=== PATIENT | female | born 1990 | race Caucasian/White ===

== ENCOUNTER 2018-12-29 05:00 | Inpatient (IN) | payer OTHER, SELFPAY ==
--- NOTE | 2018-12-24 11:36 | PCM.HP.BLA ---
Problem List (1) LGA (large for gestational age) fetus Status: Acute (2) Polyhydramnios affecting in third trimester Status: Acute History and Physical Date of Admission: 12/29/18 Rosa Birmingham Physician [employer] SPECIALIST H&P Signed Encounter Date: 12/24/2018 Expand All Collapse All Hide copied text Rosa M for details Adamaris Castro is a 28 year old female who presents for preoperative exam for primary section due to large for gestational age fetus and polyhydramnios. Patient denies any chest pain, shortness of breath, dizziness. ? PAST?MEDICAL?HISTORY PAST MEDICAL HISTORY Diagnosis Date ? Menorrhagia ? ? Overweight (BMI 25.0-29.9) 06/29/2014 ? 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 all follow ups normal ? Renal cyst 08/24/2011 ? PAST?SURGICAL?HISTORY PAST SURGICAL HISTORY Procedure Laterality Date ? EXTRACTION ERUPTED TOOTH ? ? ? [place] teeth ? FAMILY?HISTORY FAMILY HISTORY Problem Relation Age of Onset ? Cancer Mother ? ? lymphoma ? Hypertension Father ? ? Diabetes Maternal Grandfather ? ? Cancer Paternal Grandmother ? ? lymphoma ? Diabetes Paternal Grandfather ? ? SOCIAL?HISTORY Social History Socioeconomic History Marital status: Single Spouse name: Not on file Number of children: 0 Years of education: 15 Highest education level: Not on file Social Needs Financial resource strain: Not on file Food insecurity - worry: Not on file Food insecurity - inability: Not on file Transportation needs - medical: Not on file Transportation needs - non-medical: Not on file Occupational History Occupation: [employer] Employer: [employer] Tobacco Use Smoking status: Never Smoker Smokeless tobacco: Never Used Substance and Sexual Activity Alcohol use: Yes Comment: Ocassionally Drug use: No Sexual activity: Yes Partners: Male Other Topics Concerns: Not on file Social History Narrative Not on file ? CURRENT?MEDICATIONS ? Current Outpatient Medications: famotidine (PEPCID ORAL) Take by mouth. docosahexanoic acid (DHA ORAL) Take by mouth. cholecalciferol, vitamin D3, (VITAMIN D3 ORAL) Take by mouth. Vprivyjv-Mx-Mgr-Fe-FA ( VITAMIN) tab Take 1 tablet by mouth once daily. multivitamin tablet Take 1 tablet by mouth once daily. ? No current facility-administered medications for this visit. Allergies As of Date: 12/24/2018 (No Known Allergies) Fully Assessed 12/24/2018 ? ? REVIEW OF SYSTEMS Abdomen: no pain ? Expanded ROS: GENERAL: Negative for fever Allergies and current medication updated:Yes ? EXAM: BP 118/72 Wt 217 lb (98.4kg) LMP 03/29/2018 ? GENERAL: pleasant, female in no apparent distress HEENT: Normocephalic, atraumatic, mucus membranes moist and no lesions NECK: full range of motion DERMATOLOGY: Normal, without lesions, non-icteric and non-hirsute CARDIAC: Regular rate and rhythm CHEST: Normal inspiratory effort ABDOMEN: gravid, non tender FHR 135 NEURO: alert and oriented x3,exam grossly non-focal EXTREMITIES: normal ? ASSESSMENT AND PLAN: Encounter Diagnosis ? ? ICD-10-CM ? 1. Polycystic ovaries E28.2 URINE OB DIP B/O 2. Visit for screening Z36.9 URINE OB DIP B/O 3. 38 weeks gestation of Z3A.38 URINE OB DIP B/O ? 4. C/S scheduled at 39.2 wks 5. Pt has been counseled on risks/benefits and alternatives of surgery including but not limited to anesthesia, bleeding, infection, injury to pelvic structures including bowel, bladder, ureters and vessels. Pt wishes to proceed with surgery at this time. ? ? Rosa Aj MD ? ? ?
[2018-12-29] VITALS (20 sets, daily range): BP systolic 118–149; BP diastolic 68–100; PULSE 60–90; RESP 12–20; TEMP 35.7–36.7; O2SAT 96–100; BMI 35.0; BMI 35.1
[2018-12-29] MEDS: Lactated Ringers 1,000 ML 999 ML IV (05:30)
[2018-12-29 06:01] LABS: Absolute Lymphocyte Count 3.29 X10^3/uL (0.83-4.51); Absolute Neutrophil Count 5.7 X10^3/uL (2.0-7.7); Basophil# 0.06 X10^3/uL; Basophil% 0.6 % (0-1); Eosinophil# 0.11 X10^3/uL; Hematocrit 35.1 % (37-47); Hemoglobin 12.2 g/dL (12.0-15.0); Lymphocyte # 3.29 X10^3/ul (4.0); Lymphocyte % 31.1 % (19-41); Mean Corp Hgb Conc 34.8 g/dL (32-36); Mean Corpuscular Hgb 29.8 pg (27.0-32.0); Mean Corpuscular Volume 85.6 fL (81-99); Mean Platelet Vol. 11.5 fl (6.2-12.0); Monocyte# 1.08 X10^3/uL; Monocyte% 10.2 % (0-10); NRBC Flagged by Analyzer 0 % (0-5); Neutrophil # 5.72 X10^3/uL (2.7-7.7); Platelet Count 198 K/mm3 (150-450); RBC Distribution Width CV 12.4 % (11.6-14.6); RBC Distribution Width SD 38.3 fl (35.1-43.9); White Blood Count 10.6 K/mm3 (4.4-11.0)
[2018-12-29] MEDS: Lactated Ringers 1,000 ML 150 ML IV (06:19)
[2018-12-29] MEDS: Sodium Citrate/Citric Acid 30 ML UDC PO (07:08)
--- NOTE | 2018-12-29 07:23 | PCM.OPRPT ---
Problem List (1) LGA (large for gestational age) fetus Status: Acute (2) Polyhydramnios affecting in third trimester Status: Acute Report of Operation Surgery/Procedure Performed:: Primary LTCS wheel and caster repairer: Jennifer Yanes Type of Anesthesia:: Spinal Specimen's removed: placenta Grafts/Implants Used: none Delivery Classification: Scheduled Final TENA: 01/03/19 Final TENA Source: US <20 weeks Gestational age: 39 Weeks and 2 Days Indications: Elective primary cs for suspected LGA based on ultrasound findings, Polyhydramnios Description of Procedure: After informed consent was obtained the patient was taken the operating room she was given spinal anesthesia. She was then placed in the supine position. She was prepped and draped in the normal sterile fashion. Anesthesia was found to be adequate. At this time a Pfannenstiel skin incision was made with a knife was carried down to the underlying layer of the fascia. The fascial incision was then extended laterally using curved Will scissor. Tensions was then turned to the superior aspect of the fascial edge was grasped with 2 straight [place] clamps tented up and the rectus muscle dissected off sharply using curved Will scissor. Attention was then turned to the inferior aspect where again Alan clamps were placed in the rectus muscles were tented up and the fascia was dissected off sharply using the curved Will scissor. Rectus muscles were then in the midline bluntly and peritoneum was entered bluntly. Gentle opposing traction was placed. At this time the vesicouterine peritoneum was identified. Scalpel was used to make a uterine incision in a low transverse fashion. The uterus was then entered bluntly gentle opposing traction was placed to extend this incision. Membranes were ruptured clear. Infant's head was brought to the uterine incision was delivered atraumatically. Delayed cord clamping performed. Immediate skin the skin was performed. The Placenta was removed from the uterus. The uterus was then removed from the abdominal cavity. The uterus was cleared of all clots and debris using a lap. At this time the uterine incision was reapproximated using #1 Vicryl in a running locked fashion. Followed by a second imbricating layer with [id number] sutures. Hemostasis was appreciated. Kenneth placed. Posterior cul-de-sac was then cleared of all clots and debris. Uterus was placed back in the abdominal cavity. Gutters were cleared of all clots and debris. Uterine incision was reevaluated and noted to be of excellent hemostasis. At this time the peritoneum was grasped with Kellys reapproximated using #2 Vicryl suture in a running fashion. Muscles then reapproximated using #2 Vicryl in a interrupted mattress suture fashion. Fascia was then reapproximated using #1 Vicryl in a running fashion. Subcu layer was reapproximated with #2 0 plain gut suture in an interrupted fashion. Subcu layer was closed using 4-0 vicryl on a Jhoan needle in a subcu fashion. Dry sterile dressing was applied. Instrument lap needle count correct ?2. Anticipated normal postoperative course. Amniotic Membrane Rupture Type: Artificial Amniotic Fluid Description: Clear Placenta Disposition: [facility] Drain: [place] to straight drain Cord Entanglement: None Cord Vessel Description: 3 Vessels (1 minute): 8 (5 minute): 9 Delayed cord clamping: Yes Pre-op Antibiotic Given: Ancef 2 grams IV x1 Pt instructed on risks of surgery: Bleeding, Anesthesia Risks, Infection, Injury to surrounding structure(s) including bowel and bladder - Admit VTE Documentation VTE Present on Admission: Yes VTE Mechan Device Prophylaxis: SCD's VTE Pharm Prophylaxis ordered?: Yes
[2018-12-29] MEDS: Lactated Ringers 1,000 ML 100 ML IV ×2 (08:30→17:05)
[2018-12-29] MEDS: Loratadine 10 MG Tablet PO (10:22)
[2018-12-29] MEDS: Ondansetron 4 MG/2 ML Vial IV ×2 (11:24→16:50)
[2018-12-29] MEDS: Ketorolac 30 MG/ML Syringe IV ×2 (14:06→20:10)
[2018-12-29] MEDS: Metoclopramide 10 MG/2 ML Vial IV (19:13)
[2018-12-30 01:40] VITALS: RESP 16; O2SAT 98
[2018-12-30 04:00] VITALS: BP 102/59; PULSE 90; RESP 18; TEMP 37.6; O2SAT 100
[2018-12-30] MEDS: 0.9% Saline Lock 10 ML Syringe IV ×3 (04:01→14:46)
[2018-12-30] MEDS: Ketorolac 30 MG/ML Syringe IV ×3 (04:01→14:45)
[2018-12-30 04:57] LABS: Hematocrit 29.7 % (37-47); Hemoglobin 10.4 g/dL (12.0-15.0); Mean Corpuscular Hgb 30.8 pg (27.0-32.0); Mean Corpuscular Volume 87.9 fL (81-99); Mean Platelet Vol. 11.2 fl (6.2-12.0); Platelet Count 183 K/mm3 (150-450); RBC Distribution Width CV 12.4 % (11.6-14.6); RBC Distribution Width SD 39.8 fl (35.1-43.9); Red Blood Count 3.38 M/mm3 (4.2-5.4); White Blood Count 13.9 K/mm3 (4.4-11.0)
[2018-12-30 06:29] VITALS: RESP 18; O2SAT 98
--- NOTE | 2018-12-30 06:50 | PCM.PN.OB ---
Subjective: Pain well controlled. Average lochia. Nausea and vomiting have resolved. Catheter is out and has been able to urinate. - Physical Exam General: Alert, Cooperative, No apparent distress Abdomen: Soft, Distended - Mildly, softly, Tender - Appropriately Extremities: Edema - 2+ Skin: Incision - Bandage is clean dry and intact Vital Signs Temp Pulse Resp BP Pulse Ox 99.6 F H 90 18 102/59 L 98 12/30/18 04:00 12/30/18 04:00 12/30/18 06:29 12/30/18 04:00 12/30/18 06:29 Oxygen Delivery Method Room Air Weight: 98.6 kg Body Mass Index (BMI) 35.1 Intake and Output for Last 24 Hours 12/28/18 12/29/18 12/30/18 23:59 23:59 23:59 Intake Total 171 / 171 Output Total 2300 / 2300 600 / 600 Balance -2129 / -2129 -600 / -600 Laboratory Tests Past 24 Hrs 12/29/18 12/30/18 05:30 04:40 WBC 13.9 H RBC 3.38 L Hgb 10.4 L Hct 29.7 L MCV 87.9 MCH 30.8 MCHC 35.0 RDW Std Deviation 39.8 RDW Coeff of Magdi 12.4 Plt Count 183 MPV 11.2 Blood Type O POSITIVE Antibody Screen NEGATIVE Medical Necessity - Tobacco Use Smoking Status: Never smoker Assessment/Plan All Active Problems LGA (large for gestational age) fetus (Acute) Polyhydramnios affecting in third trimester (Acute) Postoperative day #1 status post primary section for large for gestational age infant, 39-week , unfavorable cervix with high head at term, and polyhydramnios. Infant is in the special care nursery for hypoglycemia. Patient is working on breast-feeding and doing well. Routine care for patient.
[2018-12-30 08:30] VITALS: BP 121/79; PULSE 96; RESP 18; TEMP 36.7; O2SAT 98
[2018-12-30] MEDS: Enoxaparin 40 MG/0.4 ML Syringe SC (09:36)
[2018-12-30] MEDS: Loratadine 10 MG Tablet PO (10:33)
[2018-12-30 14:54] VITALS: BP 129/86; BP 145/92; PULSE 93; RESP 18; TEMP 36.7; O2SAT 98
[2018-12-30 20:15] VITALS: BP 126/84; PULSE 87; RESP 18; TEMP 37.1; O2SAT 100
[2018-12-30] MEDS: Ibuprofen 600 MG Tablet PO (20:26)
[2018-12-31 02:45] VITALS: BP 129/89; PULSE 77; RESP 16; TEMP 37.2; O2SAT 97
[2018-12-31] MEDS: Ibuprofen 600 MG Tablet PO ×3 (02:45→21:19)
--- NOTE | 2018-12-31 06:53 | PCM.PN.OB ---
Subjective: Pain well controlled. Average lochia. Positive flatus but no bowel movement yet. Tolerating regular diet. - Physical Exam General: Alert, Cooperative, No apparent distress Abdomen: Soft, Distended - Moderately, softly, Tender - Appropriately Extremities: Edema - 2+ Skin: Incision - bandage clean, dry and intact Vital Signs Temp Pulse Resp BP Pulse Ox 98.9 F 77 16 129/89 H 97 12/31/18 02:45 12/31/18 02:45 12/31/18 02:45 12/31/18 02:45 12/31/18 02:45 Oxygen Delivery Method Room Air Weight: 98.6 kg Body Mass Index (BMI) 35.1 Intake and Output for Last 24 Hours 12/29/18 12/30/18 12/31/18 23:59 23:59 23:59 Intake Total 171 / 171 Output Total 2300 / 2300 600 / 600 Balance -2129 / -2129 -600 / -600 Medical Necessity - Tobacco Use Smoking Status: Never smoker Assessment/Plan All Active Problems LGA (large for gestational age) fetus (Acute) Polyhydramnios affecting in third trimester (Acute) PPD#2 s/p primary c/s doing well infant still in [facility] for low blood sugars, working on bresatfeeding
[2018-12-31] MEDS: Enoxaparin 40 MG/0.4 ML Syringe SC (07:12)
[2018-12-31] MEDS: Loratadine 10 MG Tablet PO (09:50)
[2018-12-31 09:53] VITALS: BP 134/92; PULSE 88; RESP 14; TEMP 36.4
[2018-12-31 14:05] VITALS: BP 125/88; PULSE 91; RESP 14; TEMP 36.2
[2018-12-31] MEDS: Senna/Docusate Sodium 1 Tablet PO (14:10)
[2018-12-31] MEDS: Acetaminophen 500 MG Tablet 1000 MG PO (14:10)
[2018-12-31 20:00] VITALS: BP 133/91; PULSE 85; RESP 16; TEMP 37.2; O2SAT 99
[2019-01-01 02:10] VITALS: BP 147/97; PULSE 87; RESP 18; TEMP 37.4
[2019-01-01] MEDS: Ibuprofen 600 MG Tablet PO ×2 (06:32→12:33)
[2019-01-01] MEDS: Enoxaparin 40 MG/0.4 ML Syringe SC (06:33)
--- NOTE | 2019-01-01 07:12 | PCM.PN.OB ---
Subjective: She is seen up to chair with in the special care nursery. Patient is doing well. Patient reports good pain control. Mild lochia. Denies any chest pain, shortness of breath, dizziness. Nursing going well. - Physical Exam General: Alert, Oriented x3 Abdomen: Soft, Non-Distended Extremities: No Calf Tenderness Vital Signs Temp Pulse Resp BP Pulse Ox 99.3 F H 87 18 147/97 H 99 01/01/19 02:10 01/01/19 02:10 01/01/19 02:10 01/01/19 02:10 12/31/18 20:00 Oxygen Delivery Method Room Air Weight: 98.6 kg Body Mass Index (BMI) 35.1 Intake and Output for Last 24 Hours 12/30/18 12/31/18 01/01/19 23:59 23:59 23:59 Output Total 600 / 600 Balance -600 / -600 Medical Necessity - Tobacco Use Smoking Status: Never smoker Assessment/Plan All Active Problems LGA (large for gestational age) fetus (Acute) Polyhydramnios affecting in third trimester (Acute) Postoperative day #3, doing well DC to hot status And management Routine care
--- NOTE | 2019-01-01 07:16 | DCINST_ITS ---
Discharge Diet: No Restrictions Discharge Activity: Return to Normal Activity, May Not Drive - for 2 weeks, May not drive while taking narcotic pain medications., May Shower, May Take a Tub Bath - in 7 days. May resume sexual activity in: 4-6 weeks Lifting Restrictions: 20 pounds Additional Activity Instructions:: Nothing in the vagina for 4-6 weeks. You may return to work/school in 6 weeks. Call your doctor if your incision/area has: Continuous Slow Oozing, Sudden Increased Bleeding, Increased Pain/ Swelling, Increased Redness, Foul Smelling Discharge Call your doctor if you observe: Fever of 101 or Higher, Using more than one pad per hour - for 2 hours Suture Line Care: Avoid Pulling/Pushing, Avoid Pinching/Bending Cleanse incision/area with: Keep Dressing Clean & Dry Additional Instructions: If you experience any of the following, contact your healthcare provider. * Bleeding that soaks a pad every hour for 2 hours * Fever 100.4 or higher * Unrelieved incision or abdominal pain * Swelling, redness, discharge or bleeding from your incision or episiotomy site * Your incision begins to separate * Problems urinating (including inability to urinate or burning while urinating). * Visual changes * Severe headache * Flu-like symptoms * Pain or redness in one of both of your breasts * Pain, warmth, tenderness or swelling in your legs, especially the calf area * Frequent nausea and vomiting * Symptoms of depression or anxiety If you experience any of the following, call 911 or go to the nearest Emergency Room. * Chest pain * Problems breathing * Seizure activity * Partial or complete paralysis of a body part, slurred speech, weakness or drooping of the face, or a sudden inability to walk or hold your balance Allergies/Adverse Reactions: Allergies No Known Allergies Allergy (Verified 12/29/18 05:45) Medications to take at Discharge Cholecalciferol (VIT D3) [Vitamin D3] 1,000 unit PO DAILY 12/29/18 Famotidine [Pepcid] 20 mg PO DAILY 12/29/18 Loratadine [Claritin] 10 mg PO DAILY 12/29/18 Pnv No.95/Ferrous Fum/Folic AC [ Caplet] 1 ea PO DAILY 12/29/18 Ibuprofen [Motrin] 800 mg PO TID PRN PRN #60 tab 01/01/19 Oxycodone [Oxyir] 5 - 10 mg PO Q8 PRN 7 Days #28 tablet 01/01/19 The following prescriptions were given: Ibuprofen [Motrin] 800 mg PO TID PRN PRN #60 tab PRN Reason: Pain Transmission Status: Pending to [id number] Oxycodone [Oxyir] 5 - 10 mg PO Q8 PRN 7 Days #28 tablet PRN Reason: Severe Pain (6-03/19) Transmission Status: Received by [id number] Follow-Up: Call to make an appointment with your doctor for an incision check in 1-2 weeks. You will also need a 6 week post- follow up appointment. Test results from this visit will be discussed in further detail at your follow- up appointment, if applicable. Please Follow Up With: Rosa Aj MD - Call to make an appointment for an incision check in 1-2 [phone] When: You will need a post check in 6 weeks. Primary Care Physician: Howard Peñaloza III, MD [Primary Care Provider] -
--- NOTE | 2019-01-01 08:49 | DS.PCM_ITS ---
Discharge Summary Date of Admission: 12/29/18 Date of Discharge: 01/01/19 Summary: Patient was admitted to [facility] on December 29, 2018 for an elective primary section for polyhydramnios, LGA . Patient was 39 weeks gestation. She underwent a low transverse section without complication. Patient was stable postoperatively with stable hemoglobin and hematocrit. Patient was discharged home on postoperative day #3. was in the special care nursery for sugars. - Physical Exam Vital Signs Temp Pulse Resp BP Pulse Ox 99.3 F H 87 18 147/97 H 99 01/01/19 02:10 01/01/19 02:10 01/01/19 02:10 01/01/19 02:10 12/31/18 20:00 Oxygen Delivery Method Room Air Weight: 98.6 kg Body Mass Index (BMI) 35.1 Intake and Output for Last 24 Hours 12/30/18 12/31/18 01/01/19 23:59 23:59 23:59 Output Total 600 / 600 Balance -600 / -600
[2019-01-01 10:00] VITALS: BP 132/82; PULSE 80; RESP 16; TEMP 36.7; O2SAT 96
[2019-01-01] MEDS: Loratadine 10 MG Tablet PO (10:34)
[2019-01-01] MEDS: Senna/Docusate Sodium 1 Tablet PO (10:34)
[2019-01-01 12:00] VITALS: BP 132/82; PULSE 80; RESP 16; TEMP 36.7; O2SAT 97
--- NOTE | 2019-01-06 14:41 | NURSING ---
Mother states doing well ,was in for consult see notes.
== END 2019-01-01 12:50 | disposition home or self-care (01) | DRG 788 ==
PROVIDERS: Admitting Provider Obstetrics & Gynecology; Family Provider Family Medicine; PCP Family Medicine; Referring Provider Obstetrics & Gynecology; Visit Provider Obstetrics & Gynecology
PROC: 10D00Z1 Extraction of Products of Conception, Low, Open Approach (ICD-10-PCS; CPT 59514; principal; 2018-12-29 07:15)
DX: O40.3XX0 Polyhydramnios, third trimester, not applicable or unspecified (principal); O99.284 Endocrine, nutritional and metabolic diseases complicating childbirth; E28.2 Polycystic ovarian syndrome; O36.63X0 Maternal care for excessive fetal growth, third trimester, not applicable or unspecified; Z3A.39 39 weeks gestation of pregnancy; Z37.0 Single live birth
CPT/HCPCS: 85025; 85027; 86850; 86900; 99218; J7120; A4216; G0378; J2405

== ENCOUNTER 2020-10-03 05:10 | Inpatient (IN) | payer OTHER, SELFPAY ==
[2020-04-26 14:48] VITALS: BMI 35.0
--- NOTE | 2020-09-28 16:25 | PCM.HP.BLA ---
History and Physical Date of Admission: 10/03/20 Pre-Op History and Physical ? HPI: The patient is a 30 year old female presenting for pre-operative visit. She is scheduled for , for elective repeat c/s on 10/03/20. Procedure discussed along with risks, benefits and complications. Other alternatives discussed for management. Consent form signed? Yes. ? ? PAST MEDICAL HISTORY PAST MEDICAL HISTORY Diagnosis Date ? Menorrhagia ? ? Overweight (BMI 25.0-29.9) 06/29/2014 ? 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 all follow ups normal ? Renal cyst 08/24/2011 ? ? PAST SURGICAL HISTORY PAST SURGICAL HISTORY Procedure Laterality Date ? ANESTH, SECTION ? ? ? DELIVERY ONLY ? 12/29/2018 ? C/S low transverse ? EXTRACTION ERUPTED TOOTH ? ? ? [place] teeth ? ? ? CURRENT MEDICATIONS Current Outpatient Medications Medication Sig Dispense Refill ? Medela Breast Pump Accessory Kit Use as directed with Medela Breast Pump. Include any accessories covered by insurance including tubing 1 Kit 0 ? famotidine (PEPCID ORAL) Take by mouth. ? ? ? loratadine (CLARITIN ORAL) Take by mouth. ? ? ? L. acidophilus/Bifid. animalis (DAILY PROBIOTIC ORAL) Take by mouth. ? ? ? cholecalciferol, vitamin D3, (VITAMIN D3 ORAL) Take by mouth. ? ? ? Ajkacmqf-Ro-Iox-Fe-FA ( VITAMIN) tab Take 1 tablet by mouth once daily. ? ? ? No current facility-administered medications for this visit. ? ? ALLERGIES: Patient has no known allergies. ? PERSONAL HISTORY: SOCIAL HISTORY Social History ? Tobacco Use ? Smoking status: Never Smoker ? Smokeless tobacco: Never Used Vaping Use ? Vaping Use: Never used Substance Use Topics ? Alcohol use: Yes ? ? Alcohol/week: 5.0 standard drinks ? ? Types: 1 Cans of Beer (12oz), 1 Glasses of Wine (5oz) per week ? ? Comment: Ocassionally ? Drug use: No ? FAMILY HISTORY: FAMILY HISTORY FAMILY HISTORY Problem Relation Age of Onset ? Cancer Mother ? ? lymphoma ? Hypertension Father ? ? Diabetes Maternal Grandfather ? ? Cancer Paternal Grandmother ? ? lymphoma ? Diabetes Paternal Grandfather ? ? ? REVIEW OF SYMPTOMS: negative except as noted above PHYSICAL EXAMINATION: ? VITALS: Blood pressure 108/68, weight 209 lb (94.8 kg), last menstrual period 01/04/2020, not currently . ? GENERAL: The patient is well nourished, well hydrated in no acute distress. , The patient is oriented to time, place, and person. NECK: Full range of motion Abd: gravid, non tender ? IMPRESSION: @ 39 weeks for elective repeat cs ? PLAN: Elective repeat cs ? COVID VACCINATED- no need for testing ? Pt has been counseled on risks/benefits and alternatives of surgery including but not limited to anesthesia, bleeding, infection, injury to pelvic structures including bowel, bladder, ureters and vessels. Pt wishes to proceed with surgery at this time. ? CLEAR DRAPE and immediate skin to skin. ERAS Protocol reviewed ? I have reviewed and updated past medical and surgical history, medications and allergies Rosa Birminghma MD
[2020-10-03] VITALS (15 sets, daily range): BP systolic 103–133; BP diastolic 46–83; PULSE 69–106; RESP 16–18; TEMP 35.8–36.5; O2SAT 95–99; BMI 34.2
[2020-10-03] MEDS: Lactated Ringers 1,000 ML 999 ML IV (05:48)
[2020-10-03] MEDS: Acetaminophen 500 MG Tablet 1000 MG PO ×4 (05:48→23:42)
[2020-10-03 05:51] LABS: Absolute Lymphocyte Count 3.09 X10^3/uL (0.83-4.51); Absolute Neutrophil Count 5.8 X10^3/uL (2.0-7.7); Basophil# 0.08 X10^3/uL; Basophil% 0.7 % (0-1); Eosinophil# 0.09 X10^3/uL; Eosinophils% 0.8 % (0-5); Hematocrit 36.8 % (37-47); Hemoglobin 12.4 g/dL (12.0-15.0); Lymphocyte # 3.09 X10^3/ul (0.83-4.51); Lymphocyte % 28.6 % (19-41); Mean Corp Hgb Conc 33.7 g/dL (32-36); Mean Corpuscular Hgb 29.8 pg (27.0-32.0); Mean Corpuscular Volume 88.5 fL (81-99); Mean Platelet Vol. 10.5 fl (6.2-12.0); Monocyte# 1.25 X10^3/uL; Monocyte% 11.6 % (0-10); NRBC Flagged by Analyzer 0 % (0-5); Neutrophil # 5.83 X10^3/uL (2.7-7.7); Platelet Count 216 K/mm3 (150-450); RBC Distribution Width CV 12.5 % (11.6-14.6); RBC Distribution Width SD 40.5 fl (35.1-43.9); Red Blood Count 4.16 M/mm3 (4.2-5.4); White Blood Count 10.8 K/mm3 (4.4-11.0)
[2020-10-03] MEDS: Lactated Ringers 1,000 ML 150 ML IV (06:40)
[2020-10-03] MEDS: Sodium Citrate/Citric Acid 30 ML UDC PO (07:08)
--- NOTE | 2020-10-03 07:12 | OP.PCM_ITS ---
Delivery Classification: Scheduled Final TENA: 10/10/20 Gestational age: 39 Weeks and 0 Days trigonometry tutor: Jennifer Yanes - assisted in retraction and delivery - no resident available to assist. Type of Anesthesia:: Spinal Special Medications: duramorph Implants Used: none Date of Procedure: 10/03/20 - Start time 746 end time 818 Pre-Operative Diagnosis: term gestation, elective repeat cs Post-Operative Diagnosis: same Indications: surgery performed: Low transverse C/S Indications for : Repeat Elective Description of Procedure: After informed consent was obtained the patient was taken the operating room she was given spinal anesthesia. She was then placed in the supine position. She was prepped and draped in the normal sterile fashion. Anesthesia was found to be adequate. At this time a Pfannenstiel skin incision was made with a knife was carried down to the underlying layer of the fascia. The fascial incision was then extended laterally using curved Will scissor. Tensions was then turned to the superior aspect of the fascial edge was grasped with 2 straight [place] clamps tented up and the rectus muscle dissected off sharply using curved Will scissor. Attention was then turned to the inferior aspect where again [place] clamps were placed in the rectus muscles were tented up and the fascia was dissected off sharply using the curved Will scissor. Rectus muscles were then in the midline bluntly and peritoneum was entered bluntly. Gentle opposing traction was placed. At this time the vesicouterine peritoneum was identified. Scalpel was used to make a uterine incision in a low transverse fashion. The uterus was then entered bluntly gentle opposing traction was placed to extend this incision. Membranes were ruptured clear. 's head was brought to the uterine incision was delivered atraumatically. Delayed cord clamping performed. Cord was clamped and cut was handed to the waiting nursery team for immediate skin to skin. The Placenta was removed from the uterus. The uterus was then removed from the abdominal cavity. The uterus was cleared of all clots and debris using a lap. At this time the uterine incision was reapproximated using #1 Vicryl in a running locked fashion. Hemostasis was appreciated. Posterior cul-de-sac was then cleared of all clots and debris. Uterus was placed back in the abdominal cavity. Gutters were cleared of all clots and debris. Uterine incision was reevaluated and noted to be of excellent hemostasis. At this time the peritoneum and muscle were grasped with Kellys reapproximated using #2 Vicryl suture in a running fashion. Fascia was then reapproximated using #1 Vicryl in a running fashion. Subcu layer was reapproximated with #2 0 plain gut suture in an interrupted fashion. Subcu layer was closed using 4-0 Vicryl on a Jhoan needle in a subcu fashion. Dry sterile dressing was applied. Instrument lap needle count correct ?2. Anticipated normal postoperative course. Amniotic Membrane Rupture Type: Artificial Amniotic Fluid Description: Clear Placenta Disposition: Home Drain: [place] to straight drain Fluids Replaced: 1100 Cord Entanglement: None Cord Vessel Description: 3 Vessels Esitmated Blood Loss (ml): 600 Gender: Female (1 minute): 7 (5 minute): 10 Delayed cord clamping: Yes Antibiotic Given: Ancef 2 grams IV x1 Pt instructed on risks of surgery: Bleeding, Anesthesia Risks, Infection, Need for Future C-Sections, Injury to surrounding structure(s) including bowel and bladder - Admit VTE Documentation VTE Present on Admission: Yes VTE Mechan Device Prophylaxis: SCD's VTE Pharm Prophylaxis ordered?: No
[2020-10-03] MEDS: Cefazolin 2 GM in 0.9% Normal Saline 100 ML IV (07:25)
[2020-10-03] MEDS: Ketorolac 30 MG/ML Syringe IV ×3 (09:02→21:15)
[2020-10-03] MEDS: Oxytocin 30 units/NS 500 ml 30 UNITS/500 ML IV.SOLN 167 UNITS IV (09:02)
--- NOTE | 2020-10-03 09:39 | NURSING ---
[place] pad changed. small clot noted, less than 5 cm.
[2020-10-03] MEDS: proCHLORPERazine 10 MG/2 ML Vial IV (11:26)
[2020-10-03] MEDS: Lactated Ringers 1,000 ML 100 ML IV (13:00)
[2020-10-03] MEDS: 0.9% Saline Lock 10 ML Syringe IV ×2 (18:07→21:15)
[2020-10-04 00:35] VITALS: BP 104/45; PULSE 68; RESP 17; TEMP 36.8; O2SAT 100
[2020-10-04] MEDS: 0.9% Saline Lock 10 ML Syringe IV (03:00)
[2020-10-04] MEDS: Ketorolac 30 MG/ML Syringe IV (03:00)
[2020-10-04] MEDS: Famotidine 20 MG Tablet 40 MG PO (06:14)
[2020-10-04] MEDS: Ondansetron ODT 4 MG Tablet PO (07:25)
[2020-10-04 07:30] VITALS: BP 113/70; PULSE 103; RESP 18; TEMP 36.4; O2SAT 99
[2020-10-04 08:18] LABS: Hematocrit 31.9 % (37-47); Hemoglobin 10.8 g/dL (12.0-15.0); Mean Corp Hgb Conc 33.9 g/dL (32-36); Mean Corpuscular Hgb 30.8 pg (27.0-32.0); Mean Corpuscular Volume 90.9 fL (81-99); Mean Platelet Vol. 10.4 fl (6.2-12.0); Platelet Count 195 K/mm3 (150-450); RBC Distribution Width CV 12.8 % (11.6-14.6); RBC Distribution Width SD 41.6 fl (35.1-43.9); Red Blood Count 3.51 M/mm3 (4.2-5.4); White Blood Count 11.3 K/mm3 (4.4-11.0)
--- NOTE | 2020-10-04 08:32 | PCM.PN.OB ---
Subjective Subjective: pt seen at bedside, doing well. pt reports good pain control. lochia mild. Breast feeding. Nausea improved. Voiding w/o difficulty. Objective Data Objective Data Vital Signs: Vital Signs Temp Pulse Resp BP Pulse Ox 98.2 F 68 17 104/45 L 100 10/04/20 00:35 10/04/20 00:35 10/04/20 00:35 10/04/20 00:35 10/04/20 00:35 Oxygen Delivery Method Room Air Weight: 96.162 kg Body Mass Index (BMI) 34.2 Intake & Output: Intake and Output for Last 24 Hours 10/02/20 10/03/20 10/04/20 23:59 23:59 23:59 Intake Total 4624.10 / 4624.10 Output Total 1700 / 1700 550 / 550 Balance 2924.10 / 2924.10 -550 / -550 Lab / Micro Data Result Diagrams: 10/04/20 05:30 Physical Exam Const alert and oriented x3 General Appearance: cooperative and comfortable HEENT normocephalic Neck General: normal visual inspection GI non-distended GI Narrative: dressing with some drainage, intact. Palpation: soft Extremity normal to inspection Skin no rashes or lesions noted Neuro oriented x3 and CN's II-XII intact bilaterally Assessment & Plan Assessment/Plan (1) LGA (large for gestational age) fetus: Status: Acute (2) Polyhydramnios affecting in third trimester: Status: Acute Code(s): O40.3XX0 - Polyhydramnios, third trimester, not applicable or unspecified Plan: POD#1, doing well - requesting dc home today dc home in stable condition dc home meds reviewed Ambulation regular diet pain cmgmt
[2020-10-04 08:46] LABS: Scan Indicated on CBC? Y/N NO
[2020-10-04] MEDS: Acetaminophen 500 MG Tablet 1000 MG PO (08:47)
[2020-10-04] MEDS: Senna/Docusate Sodium 1 Tablet PO (08:48)
[2020-10-04] MEDS: Ibuprofen 600 MG Tablet PO (08:48)
--- NOTE | 2020-10-04 08:52 | PCM.DC ---
Discharge Instructions Outpatient Procedure Reason For Visit: C SECTION/DELIVERED Diet Discharge Diet: No restrictions Activity Discharge Activity: May not drive while taking narcotic pain medications. and May Shower May resume sexual activity in: 4-6 weeks Lifting Restrictions: 20-25 Dressing / Incision Call your doctor if your incision/area has: Continuous Slow Oozing, Sudden Increased Bleeding, Increased Pain/ Swelling, Increased Redness, Foul Smelling Discharge and Swelling at the incision site Call your doctor if you observe: Fever of 101 or Higher and Using more than one pad per hour Remove Dressing in: 6 days (remove sooner if it gets saturated) Cleanse incision/area with: - Additional Dressing/Incision Instructions:: let soap and water run over incisions site and dab dry. keep as clean and dry as possible. Follow Up Care Please Follow Up With: Dr. Birmingham When: 1-2 weeks for incision check Test Results: Test results from this visit will be discussed in further detail at your follow-up appointment, if applicable. Discharge Plan Admission Admit Date/Time: 10/03/20 05:10 Primary Reason for Your Visit: repeat cs Attending Provider: Rosa Aj Primary Care Provider: Howard Peñaloza III Instructions Forms: Information Patient Instructions: () Discharge Orders/Prescriptions Prescriptions: New sennosides-docusate sodium [Stool Softener-Stimulant Laxat] 8.6-50 mg Tablet 1 tab PO DAILY 14 Days Qty: 14 RF: 0 acetaminophen 500 mg Tablet 1,000 mg PO Q6H Qty: 60 RF: 0 ibuprofen 600 mg Tablet 600 mg PO Q6H Qty: 60 RF: 0 simethicone [Mi-Acid Gas Relief(simethicon)] 80 mg Tablet,Chewable 80 mg PO PCHS PRN (Reason: Indigestion/stomach pain) 14 Days Qty: 30 RF: 0 ondansetron HCl (PF) 4 mg/2 mL Solution 4 mg IV Q4H PRN PRN (Reason: Nausea ) Qty: 20 RF: 0 No Action famotidine 20 MG tablet 20 mg PO DAILY RF: 0 loratadine 10 MG tablet 10 mg PO DAILY RF: 0 cholecalciferol (vitamin D3) 1,000 UNIT tablet 1,000 unit PO DAILY RF: 0 PNV cmb#95-ferrous fumarate-FA 1 EACH tablet 1 ea PO DAILY RF: 0 Referrals: Howard Peñaloza III, MD [Primary Care Provider] - Disposition Patient Disposition: Home, self care
[2020-10-04] MEDS: Prenatal Vits Tablet 1 TABLET PO (11:03)
[2020-10-04] MEDS: Cholecalciferol (VIT D3) 25 MCG TABLET (1,000 UNITS) PO (11:04)
[2020-10-04 14:17] VITALS: BP 107/63; PULSE 101; RESP 18; TEMP 36.8; O2SAT 96
== END 2020-10-04 15:20 | disposition home or self-care (01) | DRG 788 ==
PROVIDERS: Admitting Provider Obstetrics & Gynecology; PCP Family Medicine; Visit Provider Obstetrics & Gynecology
PROC: 10D00Z1 Extraction of Products of Conception, Low, Open Approach (ICD-10-PCS; CPT 59514; principal; 2020-10-03 07:15)
DX: O34.211 Maternal care for low transverse scar from previous cesarean delivery (principal); O36.63X0 Maternal care for excessive fetal growth, third trimester, not applicable or unspecified; O40.3XX0 Polyhydramnios, third trimester, not applicable or unspecified; O99.214 Obesity complicating childbirth; E66.9 Obesity, unspecified; Z3A.39 39 weeks gestation of pregnancy; Z37.0 Single live birth
CPT/HCPCS: 85025; 85027; 86850; 86900; 86901; 99218; J7120; A4216; G0378; J2405

== ENCOUNTER 2022-07-20 16:37 | Outpatient (CLI) | payer OTHER, SELFPAY ==
[2022-07-20 16:56] VITALS: BP 130/73; PULSE 94; TEMP 36.7; O2SAT 96
[2022-07-20 17:02] VITALS: BMI 31.8
[2022-07-20] MEDS: Lactated Ringers 1,000 ML 999 ML IV (17:02)
[2022-07-20] MEDS: Ondansetron 4 MG/2 ML Vial IV (17:08)
[2022-07-20 17:14] LABS: Bacteria 0 SEEN /hpf (None Seen); Mucous, Urine 0 SEEN /hpf (<or=2+); Red Blood Cells-Urine 0 SEEN /hpf (0-5); Squamous Epithelial Cells - UA 0 SEEN /hpf (5-10); White Blood Cells 0 SEEN /hpf (0-5)
[2022-07-20 17:18] LABS: Color, Urine Yellow (Yellow); Glucose, Dipstick Normal (Normal); Leukocyte Esterase-Dipstick 25 /ul (Negative); Nitrite-Dipstick Negative (Negative); Occult Blood-Urine Negative /ul (Negative); Protein-Dipstick 30 mg/dl (Negative); Specific Gravity, Urine 1.025 (1.002-1.030); Urine Bilirubin Dipstick Negative (Negative); Urine Clarity Clear (Clear); Urine Urobilinogen Normal (Normal)
[2022-07-20 17:25] LABS: Ketone-Dipstick 150 mg/dl (Negative)
[2022-07-20 17:30] LABS: ALB/GLOB Ratio 0.8 RATIO (0.9-2.4); AST(SGOT) 16 U/L (15-37); Alanine Aminotransfer ALT/SGPT 16 U/L (13-56); Albumin, Serum 3.1 g/dL (3.2-5.0); Alkaline Phosphatase 85 U/L (45-117); Anion Gap 11 (5-15); BUN 9 mg/dL (7-18); BUN/Creat Ratio 25.2 RATIO (10-20); Calcium,Total 8.3 mg/dL (8.5-10.1); Chloride 107 mmol/L (98-107); Creatinine, Serum 0.36 mg/dL (0.55-1.02); EST Glomerular Filtration Rate 222 mL/min (>60); Est Glom Filt Rate - Afr Amer 268 mL/min (>60); Estimated Creatinine Clearance 208.08 ml/min; Glucose 95 mg/dL (74-106); Potassium 3.7 mmol/L (3.5-5.1); Protein, Total 7.1 g/dL (6.4-8.2); Sodium Level 138 mmol/L (136-145)
--- NOTE | 2022-07-21 11:42 | OB.TRI.PN ---
Progress Notes Progress Note: at 25w6d by LMP. TENA:10/27/22 presents for nausea and vomiting on and off throughout the day. No immediate sick contacts but feels like gastrointestinal illness to patient. Good movement, no contractions. No abdominal pain or diarrhea. Laboratory Studies: Laboratory Tests 07/20/22 07/20/22 Range/Units 17:00 17:00 Sodium 138 (136-145) mmol/L Potassium 3.7 (3.5-5.1) mmol/L Chloride 107 (98-107) mmol/L Carbon Dioxide 20.0 L (21.0-32.0) mmol/L Anion Gap 11 (5-15) BUN 9 (7-18) mg/dL Creatinine 0.36 L (0.55-1.02) mg/dL Estim Creat Clear Calc 208.08 ml/min Est GFR (MDRD) Af Amer 268 (>60) mL/min Est GFR (MDRD) Non-Af 222 (>60) mL/min BUN/Creatinine Ratio 25.2 H (10-20) RATIO Glucose 95 (74-106) mg/dL Calcium 8.3 L (8.5-10.1) mg/dL Total Bilirubin 0.60 (0.20-1.00) mg/dL AST 16 (15-37) U/L ALT 16 (13-56) U/L Alkaline Phosphatase 85 (45-117) U/L Total Protein 7.1 (6.4-8.2) g/dL Albumin 3.1 L (3.2-5.0) g/dL Globulin 4.0 (2.2-4.2) g/dL Albumin/Globulin Ratio 0.8 L (0.9-2.4) RATIO Urine Color Yellow (Yellow) Urine Clarity Clear (Clear) Urine pH 6.0 (5.0 - 8.0) Ur Specific [place] 1.025 (1.002-1.030) Urine Protein 30 H (Negative) mg/dl Urine Glucose (UA) Normal (Normal) mg/dl Urine Ketones 150 A* (Negative) mg/dl Urine Occult Blood Negative (Negative) /ul Urine Nitrite Negative (Negative) Urine Bilirubin Negative (Negative) mg/dL Urine Urobilinogen Normal (Normal) mg/dl Ur Leukocyte Esterase 25 H (Negative) /ul Urine RBC 0 SEEN (0-5) /hpf Urine WBC 0 SEEN (0-5) /hpf Ur Squamous Epith Cells 0 SEEN (5-10) /hpf Urine Bacteria 0 SEEN (None Seen) /hpf Urine Mucus 0 SEEN (<or=2+) /hpf NST 145, moderate, accels, no decels, reactive NST No contractions Assessment & Plan (1) Viral illness: (2) Nausea and vomiting: (3) Dehydration during : PLAN: Plan 1) CMP 2) 1 liter LR IV bolus 3) Zofran 4mg IVP x 1 4) Improvement in N/V after fluids and antiemetic, will d/c home
== END 2022-07-20 18:08 | disposition home or self-care (01) ==
LOC: WPOUT 16:41 → WP 16:42
PROVIDERS: Referring Provider Advanced Practice Midwife; Visit Provider Advanced Practice Midwife
DX: O98.512 Other viral diseases complicating pregnancy, second trimester (principal); O26.892 Other specified pregnancy related conditions, second trimester; B34.9 Viral infection, unspecified; Z3A.25 25 weeks gestation of pregnancy; O99.283 Endocrine, nutritional and metabolic diseases complicating pregnancy, third trimester; E86.0 Dehydration; O21.9 Vomiting of pregnancy, unspecified
CPT/HCPCS: 96374; 96361; 59025; 59050; 80053; 81001; 99221; J7120; G0378; J2405

== ENCOUNTER 2022-10-22 09:35 | Inpatient (IN) | payer OTHER, SELFPAY ==
[2022-10-22] VITALS (19 sets, daily range): BP systolic 98–121; BP diastolic 54–74; PULSE 65–98; RESP 15–17; TEMP 35.4–36.6; O2SAT 95–100; BMI 34.2
--- NOTE | 2022-10-22 07:57 | PCM.HP.BLA ---
History and Physical Date of Admission: 10/22/22 Pre-Op History and Physical ? HPI: The patient is a 32 year old female presenting for pre-operative visit. She is scheduled for , for repeat elective cs on 10/22/22. Procedure discussed along with risks, benefits and complications. Other alternatives discussed for management. Consent form signed? Yes. ? ? PAST MEDICAL HISTORY PAST MEDICAL HISTORY Diagnosis Date ? Menorrhagia ? ? Overweight (BMI 25.0-29.9) 06/29/2014 ? 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 all follow ups normal ? Pulmonary nodule 02/21/2021 ? Sees Pulm ? Renal cyst 08/24/2011 ? TB lung, latent ? ? tx August 2019 ? ? PAST SURGICAL HISTORY PAST SURGICAL HISTORY Procedure Laterality Date ? ANESTH, SECTION ? 09/2020 ? DELIVERY ONLY ? 12/29/2018 ? C/S low transverse ? EXTRACTION ERUPTED TOOTH ? ? ? [place] teeth ? ? ? CURRENT MEDICATIONS Current Outpatient Medications Medication Sig Dispense Refill ? aspirin, enteric coated (ASPIRIN, ENTERIC COATED) 81 mg EC tablet Take 1 tablet by mouth once daily. 30 tablet 0 ? famotidine (PEPCID) 20 mg tablet Take 1 tablet by mouth twice daily as needed. ? ? ? ondansetron (ZOFRAN) 4 mg tablet Take 1 tablet by mouth every 8 hours as needed for nausea/vomiting. 30 tablet 0 ? loratadine (CLARITIN ORAL) Take by mouth once daily as needed. ? ? ? L. acidophilus/Bifid. animalis (DAILY PROBIOTIC ORAL) Take by mouth once daily. ? ? ? cholecalciferol, vitamin D3, (VITAMIN D3 ORAL) Take by mouth once daily. ? ? ? Sgfefreb-Hk-Gva-Fe-FA tab Take 1 tablet by mouth once daily. ? ? ? No current facility-administered medications for this visit. ? ? ALLERGIES: Patient has no known allergies. ? PERSONAL HISTORY: SOCIAL HISTORY Social History ? Tobacco Use ? Smoking status: Never ? Smokeless tobacco: Never Vaping Use ? Vaping Use: Never used Substance Use Topics ? Alcohol use: Yes ? ? Alcohol/week: 5.0 standard drinks ? ? Types: 1 Cans of Beer (12oz), 1 Glasses of Wine (5oz) per week ? ? Comment: Ocassionally ? Drug use: No ? FAMILY HISTORY: FAMILY HISTORY FAMILY HISTORY Problem Relation Age of Onset ? Cancer Mother ? ? lymphoma ? Hypertension Father ? ? Dementia Maternal Grandmother ? ? Diabetes Maternal Grandfather ? ? Cancer Paternal Grandmother ? ? lymphoma ? Diabetes Paternal Grandfather ? ? ? REVIEW OF SYMPTOMS: Gen: negative fever PHYSICAL EXAMINATION: ? VITALS: Blood pressure 116/68, weight 209 lb (94.8 kg), last menstrual period 01/29/2022, currently . ? GENERAL: The patient is well nourished, well hydrated in no acute distress. , The patient is oriented to time, place, and person. NECK: full range of motion Abd: soft, gravid, non tender. ? IMPRESSION: 32 yo @ 38.2 weeks- Repeat cS ? PLAN: Repeat cs at 39 weeks. ? Pt has been counseled on risks/benefits and alternatives of surgery including but not limited to anesthesia, bleeding, infection, injury to pelvic structures including bowel, bladder, ureters and vessels. Pt wishes to proceed with surgery at this time. Risk of transfusion reviewed. ? Pre and post op instructions reviewed ? I have reviewed and updated past medical and surgical history, medications and allergies Rosa Birmingham MD ?4:47 PM Routine Office Visit on 10/16/2022 Routine Office Visit on 10/16/2022 Note shared with patient
[2022-10-22] MEDS: Lactated Ringers 1,000 ML 999 ML IV (10:15)
[2022-10-22 10:37] LABS: Differential Indicated MANUAL DIFF; Hematocrit 35.6 % (37-47); Mean Corp Hgb Conc 33.7 g/dL (32-36); Mean Corpuscular Hgb 30.5 pg (27.0-32.0); Mean Corpuscular Volume 90.4 fL (81-99); Mean Platelet Vol. 10.7 fl (6.2-12.0); POSITIVE COUNT YES; POSITIVE MORPHOLOGY YES; Platelet Count 204 K/mm3 (150-450); RBC Distribution Width CV 12.7 % (11.6-14.6); RBC Distribution Width SD 41.4 fl (35.1-43.9); Red Blood Count 3.94 M/mm3 (4.2-5.4); White Blood Count 10.2 K/mm3 (4.4-11.0)
[2022-10-22] MEDS: Lactated Ringers 1,000 ML 150 ML IV (11:13)
[2022-10-22 11:14] LABS: Neutrophil-Segmented 79 % (47-70); Total Cells Counted 100 (MANUAL DIFF)
[2022-10-22 11:15] LABS: Lymphocyte 12 % (19-41); Monocyte 8 % (0-10); Myelocyte 1 % (0-0)
[2022-10-22 11:16] LABS: Platelet Estimate ADEQUATE (ADEQ)
[2022-10-22] MEDS: Sodium Citrate/Citric Acid 30 ML UDC PO (11:33)
[2022-10-22] MEDS: Acetaminophen 500 MG Tablet 1000 MG PO ×3 (11:33→23:42)
[2022-10-22 11:35] LABS: Syphilis Antibodies Non-reactive
[2022-10-22] MEDS: Cefazolin 2 GM in 0.9% Normal Saline 100 ML IV (12:00)
--- NOTE | 2022-10-22 12:58 | EX.PCM.OBRPT ---
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 She was then placed in the supine position. She was prepped and draped in the normal sterile fashion. Anesthesia was found to be adequate. At this time a Pfannenstiel skin incision was made with a knife was carried down to the underlying layer of the fascia. The fascial incision was then extended laterally using blunt traction. superior aspect of the fascial edge was grasped with 2 straight Ligonier clamps tented up and the rectus muscle dissected off sharply using curved Will scissor. Rectus muscles were grasped with allis clamps then in the midline bluntly and peritoneum was entered bluntly. Gentle opposing traction was placed. At this time the vesicouterine peritoneum was identified. metzenbaum were used to take down bladder adhesions- thin lower uterine segment on left noted. Scalpel was used to make a uterine incision in a low transverse fashion. The uterus was then entered bluntly gentle opposing traction was placed to extend this incision. Membranes were ruptured clear. 's head was brought to the uterine incision was delivered atraumatically. loose nuchal x 1 noted and reduced. delayed cord clamping performed. Cord was clamped and cut infant was handed to the waiting nursery team. The Placenta was removed from the uterus. The uterus was then removed from the abdominal cavity. The uterus was cleared of all clots and debris using a lap. At this time the uterine incision was reapproximated using #1 Vicryl in a running locked fashion. Hemostasis was appreciated. Posterior cul-de-sac was then cleared of all clots and debris. Uterus was placed back in the abdominal cavity. Gutters were cleared of all clots and debris. Uterine incision was reevaluated and noted to be of good hemostasis. Amilcar placed. At this time the peritoneum was grasped with Kellys reapproximated using #2 Vicryl suture in a running fashion. Fascia was then reapproximated using #1 Vicryl in a running fashion. Subcu layer was irrigated with NS and then amilcar placed and then reapproximated with #2 0 plain gut suture in an interrupted fashion. Subcu layer was closed using 4-0 vicryl in a subcu fashion. Dry sterile dressing was applied. Instrument lap needle count correct ?2. Anticipated normal postoperative course. Presentation: Positive for Vertex Amniotic Membrane Rupture Type: Artificial Amniotic Fluid Description: Clear Placental Delivery Description: Expressed Placenta Disposition: [facility] Cord Vessel Description: 3 Vessels Cord Entanglement: Around neck x 1, loose Infant A Gender: Female (1 minute): 9 (5 minute): 9 Delayed Cord Clamping: Yes Complications Risks of Surgery Discussed w/Patient: Bleeding, Anesthesia Risks, Infection, Need for Future C-Sections and Injury to surrounding structure(s) including bowel and bladder Complications: none
[2022-10-22] MEDS: Oxytocin 15 Units/NS 250ml 15 UNITS/250 ML IV.SOLN 83 UNITS IV (13:15)
[2022-10-22] MEDS: Ketorolac 30 MG/ML Syringe IV ×2 (15:17→20:18)
[2022-10-22] MEDS: Lactated Ringers 1,000 ML 100 ML IV (16:16)
--- NOTE | 2022-10-22 20:42 | NURSING ---
pt walked to bathroom and tolerated well.
--- NOTE | 2022-10-22 23:46 | NURSING ---
Cortez catheter removed at 2340 and intact. Cortez insertion date/ time not documented.
[2022-10-23] MEDS: 0.9% Saline Lock 10 ML Syringe IV (02:25)
[2022-10-23] MEDS: Ketorolac 30 MG/ML Syringe IV ×2 (02:25→08:45)
[2022-10-23 04:33] VITALS: BP 99/52; PULSE 72; RESP 16; TEMP 36.5; O2SAT 96
[2022-10-23] MEDS: Acetaminophen 500 MG Tablet 1000 MG PO ×2 (05:28→12:18)
[2022-10-23 05:48] LABS: Hematocrit 34.1 % (37-47); Hemoglobin 11.5 g/dL (12.0-15.0); Mean Corp Hgb Conc 33.7 g/dL (32-36); Mean Corpuscular Hgb 30.6 pg (27.0-32.0); Mean Corpuscular Volume 90.7 fL (81-99); Mean Platelet Vol. 10.4 fl (6.2-12.0); Platelet Count 158 K/mm3 (150-450); RBC Distribution Width CV 12.9 % (11.6-14.6); RBC Distribution Width SD 42.5 fl (35.1-43.9); Red Blood Count 3.76 M/mm3 (4.2-5.4); White Blood Count 12.1 K/mm3 (4.4-11.0)
[2022-10-23 08:00] VITALS: BP 110/69; PULSE 99; RESP 16; TEMP 36.1; O2SAT 96
--- NOTE | 2022-10-23 08:37 | PCM.DC.SUM ---
Providers Date of Admission: 10/22/22 Reason For Visit: REPEAT C SECTION Diagnosis Discharge Diagnosis (1) Post-operative pain: Status: Acute Code(s): G89.18 - Other acute postprocedural pain Medications at Discharge Home Medications vit no.95-ferrous fumarate 28 mg-folic acid 800 mcg tablet 1 ea PO DAILY 12/29/18 Probiotic 1 tab PO.IVFORM DAILY supplementation 07/20/22 sennosides 8.6 mg-docusate sodium 50 mg tablet (Stool Softener-Stimulant Laxative) 1 tab PO DAILY constipation 10/22/22 acetaminophen 500 mg tablet 1,000 mg PO Q6 #0 tabs 10/23/22 ibuprofen 600 mg tablet 600 mg PO Q6H #0 tabs 10/23/22 oxycodone 5 mg tablet 5 - 10 mg PO Q4H PRN PRN Pain Score 4-10 3 days #10 tabs 10/23/22 Hospital Course Operations section Summary of Care Provided Hospital Course: Patient was here for repeat section. Hospital course was uneventful. Physical Exam Narrative Patient seen at bedside. Feeling good. Ambulating and voiding without difficulty. Eating breakfast. Denies pain. independently. Denies headache, vision changes, dizziness, SOB or CP. Desires discharge home today. Const alert and no apparent distress General Appearance: cooperative and comfortable Exam Limitations: no limitations HEENT normocephalic Eyes General Eye: normal appearance of both eyes Neck full ROM General: normal visual inspection Chest Chest: symmetrical chest wall rise Resp normal respiratory effort and normal air movement Effort and Inspection: symmetric chest movement Auscultation: clear to auscultation bilaterally Cardio regular rate and regular rhythm GI normal to inspection, nondistended, normoactive bowel sounds Back/Spine normal ROM Extremity full ROM and no calf tenderness General Extremity: normal exam except as noted Skin no rashes or lesions noted Neuro CN's II-XII intact bilaterally Psych mental status grossly normal Weight / BMI Weight Weight: 212 lb Body Mass Index (BMI) 34.2 ABG / Lab / Microbiology Data Result Diagrams: 10/23/22 05:30 Laboratory: Laboratory Results - last 24 hr 10/22/22 10:15: WBC 10.2, RBC 3.94 L, Hgb 12.0, Hct 35.6 L, MCV 90.4, MCH 30.5, MCHC 33.7, RDW Std Deviation 41.4, RDW Coeff of Magdi 12.7, Plt Count 204, MPV 10.7, Neut % (Auto) Not Reportable, Absolute Neuts (auto) 8.0 H, Absolute Lymphs (auto) 1.20, Total Counted 100, Neutrophils % (Manual) 79 H, Lymphocytes % (Manual) 12 L, Monocytes % (Manual) 8, Myelocytes % 1 H, Diff Path Review May andrea, Platelet Estimate ADEQUATE 10/22/22 10:15: Blood Type O POSITIVE, Antibody Screen NEGATIVE 10/22/22 10:15: Syphilis Total Ab Non-reactive 10/23/22 05:30: WBC 12.1 H, RBC 3.76 L, Hgb 11.5 L, Hct 34.1 L, MCV 90.7, MCH 30.6, MCHC 33.7, RDW Std Deviation 42.5, RDW Coeff of Magdi 12.9, Plt Count 158, MPV 10.4 D/C Instructions Discharge Diet: No restrictions Discharge Activity: May Drive (2 weeks) and May Shower May resume sexual activity in: 6-8 weeks Weight Bearing Status: Weight bearing as tolerated Call your doctor if your incision/area has: Continuous Slow Oozing, Sudden Increased Bleeding, Increased Pain/ Swelling, Increased Redness, Foul Smelling Discharge and Swelling at the incision site Call your doctor if you observe: Fever of 101 or Higher, Numbness or Tingling, Using more than 1 pad per hour, Shortness of breath, Dizziness, Swelling in the ankles, Chest pain, Calf discomfort and Uncontrolled pain Suture Line Care: Avoid Pulling/Pushing Remove Dressing in: 5 days Please Follow Up With: Micki Riggins CNM When: 1 week for incision check Meaningful Use Info Meaningful Use Diagnoses (Choose all that apply): None applicable Discharge Plan Admission Admit Date/Time: 10/22/22 09:35 Primary Reason for Your Visit: Repeat Section Attending Provider: Rosa Aj Discharge Orders/Prescriptions Prescriptions: New acetaminophen 500 mg Tablet 1,000 mg PO Q6 Qty: 0 0RF ibuprofen 600 mg Tablet 600 mg PO Q6H Qty: 0 0RF oxycodone 5 mg Tablet 5 - 10 mg PO Q4H PRN PRN (Reason: Pain Score 4-10) 3 Days Qty: 10 0RF Continued PNV cmb#95-ferrous fumarate-FA 1 EACH tablet 1 ea PO DAILY sennosides-docusate sodium [Stool Softener-Stimulant Laxat] 8.6-50 mg tablet 1 tab PO DAILY Probiotic 1 tab PO.IVFORM DAILY Discontinued famotidine 20 MG tablet 20 mg PO DAILY cholecalciferol (vitamin D3) 1,000 UNIT tablet 1,000 unit PO DAILY Aspir-81 1 tab PO.IVFORM DAILY Referrals / Follow Up: Micki Riggins CNM [Med Staff - Adv Practice Prof] - Disposition Disposition (needs filled in before D/C Order can be placed): Home, Self Care
[2022-10-23] MEDS: Senna/Docusate Sodium 1 Tablet PO (10:29)
[2022-10-23 13:11] VITALS: BP 121/61; PULSE 88; RESP 16; TEMP 36.2; O2SAT 95
[2022-10-23 14:48] LABS: Pathologist Review Reviewed
== END 2022-10-23 16:10 | disposition home or self-care (01) | DRG 788 ==
PROVIDERS: Admitting Provider Obstetrics & Gynecology; Referring Provider Obstetrics & Gynecology; Visit Provider Obstetrics & Gynecology
PROC: 10D00Z1 Extraction of Products of Conception, Low, Open Approach (ICD-10-PCS; CPT 59514; principal; 2022-10-22 11:45)
DX: O34.211 Maternal care for low transverse scar from previous cesarean delivery (principal); O69.81X0 Labor and delivery complicated by cord around neck, without compression, not applicable or unspecified; Z37.0 Single live birth; Z3A.39 39 weeks gestation of pregnancy
CPT/HCPCS: 59025; 59050; 85025; 85027; 86780; 86850; 86900; 86901; 99221; J7120; A4216; G0378; J2405